=== PATIENT | female | born 1990 | race Caucasian/White ===

== ENCOUNTER 2017-03-20 14:14 | Inpatient (IN) | payer OTHER ==
[~2017-03-20] VITALS: Ht 165.1 cm; Wt 96.2 kg
[2017-03-20 14:55] LABS: PATH.CAST-FLAG NOT PRESENT; SPERM-FLAG NOT PRESENT; SRC-FLAG NOT PRESENT; XTAL-FLAG NOT PRESENT; YLC-FLAG NOT PRESENT
[2017-03-20 15:14] LABS: HEMATOCRIT 42.7 % (34.6-47.8); HEMOGLOBIN 14.5 g/dL (11.7-16.4); WHITE BLOOD COUNT 14.1 x10^3/uL (3.4-10)
[2017-03-20 15:26] LABS: BLOOD UREA NITROGEN 10 mg/dL (7-18)
[2017-03-20 15:31] LABS: ASPARTATE AMINO TRANSFERASE 11 U/L (15-37)
[2017-03-20] MEDS ORDERED: CEFOTETAN PMX 1GM/50ML 50 ML IV ONE (16:30)
[2017-03-20] MEDS ORDERED: SODIUM CHLORIDE FLUSH 10ML SYR IVF PRN (16:30)
[2017-03-20] MEDS ORDERED: CYCL5TAB PO (16:48)
[2017-03-20] MEDS ORDERED: CETI10CA PO (16:48)
[2017-03-20] MEDS ORDERED: CIPR500T3 PO (16:48)
[2017-03-20] MEDS ORDERED: IBUP200T48 PO (16:48)
[2017-03-20] MEDS ORDERED: HYDR-3237 PO (16:48)
[2017-03-20] MEDS ORDERED: EPINEPHRINE 1 MG/ML, 1ML ONE (18:03)
[2017-03-20] MEDS ORDERED: BUPIVACAINE/PF 0.5% ONE (18:03)
[2017-03-20 18:43] LABS: HCG UR LOT HCG7030192
[2017-03-20] MEDS ORDERED: SCOPOLAMINE PATCH, 1MG PATCH.TD72 TD ONE ×2 (18:44→19:03)
[2017-03-20] MEDS ORDERED: GLYCOPYRROLATE 0.2MG/1ML, 5ML ONE (18:47)
[2017-03-20] MEDS ORDERED: LIDOCAINE-MPF 2% ,5ML ONE (18:47)
[2017-03-20] MEDS ORDERED: NEOSTIGMINE 1 MG/ML, 10ML ONE (18:47)
[2017-03-20] MEDS ORDERED: PROPOFOL 10 MG/ML, 20ML ONE (18:47)
[2017-03-20] MEDS ORDERED: SUCCINYLCHOLINE 20 MG/ML, 10ML ONE (18:47)
[2017-03-20] MEDS ORDERED: ONDANSETRON 2MG/ML, 2ML ONE ×2 (18:47→19:46)
[2017-03-20] MEDS ORDERED: FENTANYL PF 500 MCG/10ML ONE (18:47)
[2017-03-20] MEDS ORDERED: CEFAZOLIN 1,000 MG ONE (18:47)
[2017-03-20] MEDS ORDERED: MIDAZOLAM 1 MG/ML, 2ML ONE (18:47)
[2017-03-20] MEDS ORDERED: DEXAMETHASONE 4 MG/ML, 1ML ONE (18:47)
[2017-03-20] MEDS ORDERED: METOCLOPRAMIDE 5 MG/ML, 2ML ONE (18:48)
[2017-03-20] MEDS ORDERED: LIDOCAINE GEL 2%, 5ML ONE (18:49)
[2017-03-20] MEDS ORDERED: LORazepam 2 MG/ML, 1ML IVPush PRN (19:00)
[2017-03-20] MEDS ORDERED: ONDANSETRON 2MG/ML, 2ML IVPush PRN (19:00)
[2017-03-20] MEDS ORDERED: DIAZEPAM 5 MG/ML, 2ML IVPush PRN (19:00)
[2017-03-20] MEDS ORDERED: MIDAZOLAM 1 MG/ML, 2ML IV PRN (19:00)
[2017-03-20] MEDS ORDERED: MEPERIDINE/PF 25MG/0.5ML IVPush PRN (19:00)
[2017-03-20] MEDS ORDERED: ACETAMINOPHEN 325 MG TABLET PO PRN (19:00)
[2017-03-20] MEDS ORDERED: ALBUTEROL/IPRATROPIUM 2.5MG/0.5MG, 3 ML NPPB PRN (19:00)
[2017-03-20] MEDS ORDERED: OXYcodone 5 MG/5 ML ORAL.SOL UDC PO PRN (19:00)
[2017-03-20] MEDS ORDERED: PROMETHAZINE 25 MG/ML, 1ML IV PRN (19:00)
[2017-03-20] MEDS ORDERED: LABETALOL 5MG/ML, 20ML IV PRN (19:00)
[2017-03-20] MEDS ORDERED: FENTANYL PF 100 MCG/2ML IV PRN (19:00)
[2017-03-20] MEDS ORDERED: hydrALAzine 20 MG/ML, 1ML IV PRN (19:00)
[2017-03-20 19:02] LABS: HCG UR OBC PASS
[2017-03-20] MEDS ORDERED: ROCURONIUM 10MG/ML,5ML ONE (19:03)
[2017-03-20] MEDS ORDERED: KETOROLAC 30 MG/1 ML ONE (19:14)
[2017-03-20] MEDS ORDERED: ALBUTEROL/IPRATROPIUM 2.5MG/0.5MG, 3 ML ONE (19:34)
[2017-03-20] MEDS ORDERED: BUPIVACAINE/PF 0.5% INFIL ONE (19:43)
[2017-03-20] MEDS ORDERED: EPINEPHRINE 1 MG/ML, 1ML INFIL ONE (19:44)
[2017-03-20] MEDS: HYDROmorphone 1 MG/ML, 1ML IV PRN ×2 (19:45→20:13)
[2017-03-20] MEDS ORDERED: HYDROmorphone 1 MG/ML, 1ML ONE (19:47)
[2017-03-20] MEDS ORDERED: OXYcodone 5 MG/5 ML ORAL.SOL UDC ONE (19:47)
[2017-03-20 20:55] VITALS: BP 157/95
[2017-03-20] MEDS ORDERED: SODIUM CHLORIDE FLUSH 10ML SYR IVF SCH (21:00)
[2017-03-20 21:10] VITALS: BP 168/107
[2017-03-20 21:25] VITALS: BP 158/95
[2017-03-20] MEDS ORDERED: morphine SULFATE 10 MG/ML, 1ML IV PRN (21:30)
[2017-03-20] MEDS ORDERED: ONDANSETRON 2MG/ML, 2ML IV PRN (21:30)
[2017-03-20] MEDS ORDERED: LACTATED RINGERS 1,000 ML IV SCH (21:30)
[2017-03-20 21:55] VITALS: BP 164/110
[2017-03-20 22:30] VITALS: BP 164/105
[2017-03-20] MEDS: KETOROLAC 30 MG/1 ML IV PRN (22:40)
[2017-03-20] MEDS: HYDROcodone/APAP 5/325 TABLET PO PRN (22:41)
[2017-03-20 23:40] VITALS: BP 139/89
[2017-03-21 04:05] VITALS: BP 153/98
[2017-03-21] MEDS: KETOROLAC 30 MG/1 ML IV PRN (05:56)
[2017-03-21] MEDS: HYDROcodone/APAP 5/325 TABLET PO PRN (05:56)
[2017-03-21 08:00] VITALS: BP 136/97
== END 2017-03-21 09:40 | disposition home or self-care (01) | DRG 419 ==
LOC: ED 16:05 → EDIP 16:09 → 3WST 20:40
PROVIDERS: ADMIT Surgery; ATTEND Surgery
PROC: 0FT44ZZ Resection of Gallbladder, Percutaneous Endoscopic Approach (ICD-10-PCS; principal; 2017-03-20 19:00)
DX: K80.42 Calculus of bile duct with acute cholecystitis without obstruction (principal); N30.90 Cystitis, unspecified without hematuria; M79.7 Fibromyalgia
CPT/HCPCS: 36415; 76700; 80053; 81001; 81025; 83690; 85025; 88304; 96374; 96375; C1729; J0171; J0690; J1100; J1170; J1885; J2250; J2405; J2704; J2710; J3010; J3490; J0330; J2765